=== PATIENT | female | born 1945 | race Caucasian/White ===

== ENCOUNTER 2017-10-01 23:43 | Emergency (ER) | payer MEDICARE, OTHER ==
[~2017-10-01] VITALS: Ht 152.4 cm; Wt 82.6 kg
[~2017-10-01 23:43] MED LIST: ALIGN4 MG; ALLEGRA ALLERG180 MG PO; ASPIRIN325 MG PO; ATORVASTATIN CA20 MG PO; BENICAR20 MG PO; BUPROPION HCL150 M1 PO; CALCIUM 600 +1 EAC2 PO; CALCIUM CARBONATE PO; CENTRUM SILVER1 EAC1 PO; D3 VITAMIN PO; DULCOLAX5 MG PO; Ester C PO; FISH OIL OMEGA1 EACH PO; FISH OIL PO; HYDROCODONE PO; LEVOTHYROXINE75 MCG PO; LISINOPRIL10 MG PO; METFORMIN HCL750 MG PO; OMEPRAZOLE20 M1 PO; PAROXETINE HCL20 MG PO; TOVIAZ8 MG PO; TYLENOL WITH C1 EACH PO; ULTRAM50 MG PO
[2017-10-01] MEDS ORDERED: MYRBETRIQ50 MG PO (23:55)
[2017-10-01] MEDS ORDERED: CRANBERRY CONC1 EAC1 PO (23:57)
[2017-10-01] MEDS ORDERED: FERROUS SULFAT325 MG PO (23:58)
--- NOTE | 2017-10-02 00:46 | Diagnostic Imaging Report ---
EXAMINATION: Head CT without contrast. HISTORY:Status post fall. COMPARISON:CT brain from 09/22/2015. TECHNIQUE: Multidetector axial images were obtained from the foramen magnum to the vertex without contrast. The images were reconstructed using brain and bone algorithms. Thin section brain images were reformatted into coronal and sagittal planes. Intravenous contrast: None IMAGE QUALITY: Acceptable. FINDINGS: Skull/scalp: No lytic or blastic. lesions. No surgical changes. Parenchyma: No abnormal density. No acute hemorrhage, mass or acute major vascular territorial infarct. Arteries: Atherosclerotic calcification in bilateral carotid siphon. Dural sinuses: No abnormal density suggestive of thrombosis. Ventricles: Mild compensated dilatation due to volume loss. No hydrocephalus. Extra-axial spaces: Unchanged asymmetric prominence of the extra-axial space in the left anterior lateral aspect of the premedullary cistern may represent a normal variant or secondary to underlying small arachnoid cyst. Brain volume: Mild generalized age-related cerebral volume loss. Craniocervical junction: No mass, Chiari malformation, or basilar invagination. Sella: No mass. Paranasal/mastoid sinuses: Imaged portions unremarkable. IMPRESSION: No acute intracranial abnormality. No change since CT head from 09/22/2015. Chronic findings: Mild generalized cerebral volume loss. Signed by: Dr. Debra Zimmerman M.D. on 10/02/2017 12:42 AM
--- NOTE | 2017-10-02 00:53 | Diagnostic Imaging Report ---
History: Fall. Comparison studies: None Technique: Axial images were obtained through the cervical region.. Coronal and sagittal images reconstructed from the axial data.. Intravenous contrast: None Findings: Fractures: None. Soft tissue injuries: None. Atlantoaxial articulation: Intact. Alignment: Loss of normal cervical lordosis may be positional or due to muscle spasm. No scoliosis. 2 mm grade 1 anterolisthesis at C3-C4, 2.7 mm anterolisthesis at C4-C5 and 2 mm grade 1 anterolisthesis at C7-T1. Cervicomedullary junction: No abnormalities. The foramen magnum is patent. Soft tissues: No abnormalities. Vertebrae: No fractures, infection or neoplasm. Degenerative changes: C3-C4: Mild degenerative disc disease. Moderate left foraminal stenosis due to facet and uncovertebral arthrosis. C4-C5: Moderate degenerative disc disease. Posterior disc osteophyte complex without canal stenosis. Mild left foraminal stenosis due to facet and uncovertebral arthrosis. C5-C6: Degenerative disc disease. Posterior disc osteophyte complex without canal stenosis. Mild left foraminal stenosis due to facet and uncovertebral arthrosis. C6-C7: Severe degenerative disc disease. Posterior disc osteophyte complex without canal stenosis. Mild left foraminal stenosis due to facet and uncovertebral arthrosis.. IMPRESSION: 1. No acute cervical spine fracture. Loss of normal cervical lordosis may be positional or due to muscle spasm. 2. Ligament, spinal cord and or vascular abnormalities cannot be excluded on the basis of this examination. 3. Grade 1 anterolisthesis at C3-C4, C4-C5 and C7-T1. 4. Cervical spondylosis as detailed above. Signed by: Dr. Debra Zimmerman M.D. on 10/02/2017 12:49 AM
== END 2017-10-02 02:56 | disposition home or self-care (01) ==
LOC: ER 23:43
DX: S00.81XA Abrasion of other part of head, initial encounter (principal); S50.311A Abrasion of right elbow, initial encounter; S40.811A Abrasion of right upper arm, initial encounter; W01.0XXA Fall on same level from slipping, tripping and stumbling without subsequent striking against object, initial encounter; Y92.019 Unspecified place in single-family (private) house as the place of occurrence of the external cause; I10 Essential (primary) hypertension; E78.00 Pure hypercholesterolemia, unspecified; E03.9 Hypothyroidism, unspecified; Z86.73 Personal history of transient ischemic attack (TIA), and cerebral infarction without residual deficits; Z79.82 Long term (current) use of aspirin
CPT/HCPCS: 70450; 72125; 99283

== ENCOUNTER 2017-11-30 14:46 | Observation (INO) | payer MEDICARE ==
[~2017-11-30] VITALS: Ht 154.9 cm; Wt 75.7 kg
[~2017-11-30 14:46] MED LIST changes: +CRANBERRY CONC1 EAC1 PO; +FERROUS SULFAT325 MG PO; +MYRBETRIQ50 MG PO
[2017-11-30] MEDS ORDERED: ONDANSETRON HCL INJ 2 MG/ML VIAL IV STA (14:49)
[2017-11-30] MEDS ORDERED: SODIUM CHLORIDE 0.9% 1000ML 1,000 ML IV STA (14:49)
[2017-11-30] MEDS ORDERED: MORPHINE SULFATE INJ 4 MG/ML INJ IV STA (14:49)
[2017-11-30] MEDS ORDERED: MECLIZINE HCL 12.5 MG TAB PO ONE (15:00)
[2017-11-30 15:24] LABS: BASOPHILS % 0.4 % (0.0-1.0); HEMATOCRIT 37.2 % (34.2-44.1); HEMOGLOBIN 12.8 g/dL (12.0-16.0); LYMPHOCYTES # (AUTO) 1.1 (1.0-3.2); LYMPHOCYTES % 20.7 % (18.0-39.1); MEAN CORPUSCULAR HEMOGLOBIN 33.7 pg (28-32); MEAN CORPUSCULAR HGB CONC 34.4 g/dL (31-35); MEAN CORPUSCULAR VOLUME 97.9 fL (81-99); MONOCYTES # (AUTO) 0.5 (0.2-0.8); NEUTROPHILS # (AUTO) 3.8 (2.1-6.9); NEUTROPHILS % 69.5 % (38.7-80.0); PLATELET COUNT 129 x10e3/uL (140-360)
[2017-11-30 15:41] LABS: ALANINE AMINOTRANSFERASE 17 IU/L (0-55); ALBUMIN 3.2 g/dL (3.5-5.0); ALBUMIN/GLOBULIN RATIO 1.2 (0.8-2.0); ALKALINE PHOSPHATASE 86 IU/L (40-150); ANION GAP 13.8 mmol/L (8-16); BLOOD UREA NITROGEN 22 mg/dL (7-26); BUN/CREATININE RATIO 25 (6-25); CALCIUM 9.5 mg/dL (8.4-10.2); CARBON DIOXIDE 22 mmol/L (22-29); CHLORIDE 110 mmol/L (98-107); CREATINE KINASE 159 IU/L (29-168); CREATININE, SERUM 0.89 mg/dL (0.57-1.11); EST GLOMERULAR FILTRATION RATE > 60 ML/MIN (60-); GLUCOSE 113 mg/dL (74-118); LIPASE 43 U/L (8-78); POTASSIUM 3.8 mmol/L (3.5-5.1); SODIUM 142 mmol/L (136-145)
--- NOTE | 2017-11-30 15:41 | Diagnostic Imaging Report ---
PROCEDURE: A single AP view of the chest. COMPARISON: None. INDICATIONS: NASUEA, VERTIGO FINDINGS: Lines/tubes: None. Lungs: The lungs are well inflated and clear. There is no evidence of pneumonia or pulmonary edema. Pleura: There is no pleural effusion or pneumothorax. Heart and mediastinum: The heart and the mediastinum are unremarkable. Bones: Degenerative changes of the right shoulder. IMPRESSION: 1. No acute cardiopulmonary disease. Dictated by: Yuan Ma M.D. on 11/30/2017 at 15:47 Electronically approved by: Yuan Ma M.D. on 11/30/2017 at 15:47
--- NOTE | 2017-11-30 15:58 | Diagnostic Imaging Report ---
ADDENDUM #1 Dose modulation, iterative reconstruction, and/or weight based adjustment of the mA/kV was utilized to reduce the radiation dose to as low as reasonably achievable. Please disregard the following dictation errors. Under the heading of comparison studies, the following should read: Multiple head CTs which date to 03/20/2014, most recent of 10/02/2017. In the impression the following should read: 1. No acute intracranial abnormalities. 2. No changes from the previous head CT of 10/02/2017. 3. Mild generalized volume loss. Signed by: Dr. Latrell Pedroza M.D. on 12/27/2017 4:41 PM ORIGINAL REPORT Exam: Head CT without contrast History: Dizziness Comparison studies: Multiple head CTs which date to 03/20, most recent of 10/02/2017. Technique: Axial images were obtained from the skull base to the vertex. Coronal and sagittal images reconstructed from the axial data. Intravenous contrast: None Findings: Scalp: No abnormalities. Bones: No fractures, destructive blastic or lytic lesions. Brain sulci: Mildly prominent. Ventricles: Mild compensatory dilatation.. No hydrocephalus. Extra-axial spaces: No masses, no fluid collection. Parenchyma: No abnormal densities. No masses, hemorrhage, acute or chronic vascular insults. Sellar/suprasellar region: No abnormalities. Craniocervical junction: Patent foramen magnum. No Chiari one malformation. Incidental findings: Atherosclerotic calcifications in the carotid siphons and intradural vertebral arteries. 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 Small sessile exostoses or osteoma is along the outer table of the bifrontal calvarium. IMPRESSION: 1. No acute intracranial abnormalities. 2. No changes from the previous head CT of 617 10/05/2017. 3. Mild general is volume loss. Signed by: Dr. Latrell Pedroza M.D. on 11/30/2017 3:54 PM
[2017-11-30] MEDS ORDERED: MECLIZINE HCL 12.5 MG TAB PO PRN (16:45)
[2017-11-30] MEDS ORDERED: ONDANSETRON HCL 4 MG ORAL DISINTEGRATING TAB PO PRN (16:45)
[2017-11-30 17:33] VITALS: BP 123/80
[2017-11-30 17:36] VITALS: BP 123/80
[2017-11-30 19:41] VITALS: BP 109/65
[2017-11-30 20:05] LABS: BILIRUBIN,URINE NEGATIVE (NEGATIVE); CLARITY,URINE CLEAR (CLEAR); COLOR,URINE YELLOW (YELLOW); KETONES,URINE NEGATIVE (NEGATIVE); LEUKOCYTE ESTERASE ,URINE NEGATIVE (NEGATIVE); NITRITE,URINE NEGATIVE (NEGATIVE); PROTEIN,URINE DIPSTICK NEGATIVE (NEGATIVE); URINE UROBILINOGEN 0.2 mg/dL (0.2 - 1)
[2017-11-30 20:16] LABS: EPITHELIAL CELLS,URINE FEW /LPF
[2017-11-30 21:00] VITALS: BP 109/65
[2017-12-01] VITALS (7 sets, daily range): BP systolic 97–138; BP diastolic 57–87
[2017-12-01] MEDS ORDERED: TRAMADOL HCL 50 MG TAB PO PRN (08:45)
[2017-12-01] MEDS ORDERED: PANTOPRAZOLE SOD 40 MG TABEC PO SCH (08:45)
[2017-12-01] MEDS ORDERED: LEVOTHYROXINE SODIUM 75 MCG TAB PO SCH (08:45)
[2017-12-01] MEDS ORDERED: BUPROPION HCL 150 MG TABCR PO SCH (09:00)
[2017-12-01] MEDS ORDERED: (Mirabegron (Myrbetriq) 50 MG) PO SCH (09:00)
[2017-12-01] MEDS ORDERED: BUPROPION HCL 300 MG PO SCH (09:00)
[2017-12-01] MEDS ORDERED: PAROXETINE HCL 20 MG TAB PO SCH (10:00)
[2017-12-01] MEDS ORDERED: MECLIZINE HCL12.5 MG PO (13:52)
--- NOTE | 2017-12-01 14:46 | History and Physical ---
[facility] SUMMARY DATE OF DISCHARGE: 12/01/2017 PRIMARY CARE PROVIDER: Dr. Rony Lopez. ADMITTING DIAGNOSES 1. Vertigo. 2. Rule out transient ischemic attack. 3. Hypertension. 4. Depression. DISCHARGE DIAGNOSES 1. Vertigo, resolved. 2. Rule out transient ischemic attack. 3. Hypertension. 4. Depression. BRIEF HISTORY: Ms. Haddad is a 72-year-old lady who presented with 1 day of vertigo. The patient also was being seen by psych for some early memory loss and stuttering. The vertigo was fairly severe, and there was some concern for possible TIA. The patient was admitted for observation. REVIEW OF SYSTEMS: She denies fever, chills or weight loss. She denies sinus congestion or sore throat. She denies chest pain or palpitations. She denies shortness breath, wheezing or cough. She denies abdominal pain, nausea, vomiting or melena. She denies dysuria or flank pain. She denies rash or pruritus. She denies joint pain or swelling. She denies bleeding or bruising. She had vertigo. Denied loss of consciousness or focal weakness. She has some depression, which is being treated. She denies homicidal or suicidal ideation. PAST MEDICAL HISTORY: Significant for hypertension and depression. MEDICATIONS: Her regular medications include: 1. Wellbutrin ER 300 mg daily. 2. Paxil 30 mg at bedtime. 3. Levothyroxine 75 mcg daily for hypothyroidism. 4. Myrbetriq 50 mg daily for urinary incontinence. 5. Omeprazole 40 mg daily for GERD. 6. Tramadol as needed for pain. 7. Hitchins 3. 8. Lisinopril 20 mg daily. 9. Iron sulfate 325 mg daily. 10. Aspirin 325 mg daily. 11. Dulcolax as needed. SURGICAL HISTORY: She has a distant history of hysterectomy, and she has also had a right total hip replacement. ALLERGIES: SHE HAS NO KNOWN DRUG ALLERGIES. FAMILY HISTORY: Remarkable for hypertension. SOCIAL HISTORY: The patient is . Kazakh is her primary language. She does not smoke, drink or use illegal drugs. She is generally independently functioning. PHYSICAL EXAMINATION PSYCHIATRIC: She is alert and oriented times 3 with normal mood and affect. CONSTITUTIONAL: She has a normal body habitus. She is in no acute distress. VITAL SIGNS: Blood pressure 133/71. Pulse 70 and regular. Respiratory rate 17. O2 sat 96%. Temperature 97.0. HEENT: Head is atraumatic. Her eyes are anicteric with clear conjunctivae. Ears and nares are without erythema or discharge. Oropharynx is clear. NECK: Supple with no mass or thyromegaly. LYMPHATIC SYSTEM: She has no palpable cervical, axillary or inguinal adenopathy. CARDIOVASCULAR: Her heart has a regular rate and rhythm without murmur or extra heart sounds. She has no peripheral edema. She has palpable dorsal pedal pulses. RESPIRATORY: Lungs are clear to auscultation and percussion with normal respiratory effort. GASTROINTESTINAL: Her abdomen is soft without organomegaly, masses or tenderness. She has normal bowel sounds present. CUTANEOUS: Her skin is warm and dry to touch with no rash or skin breakdown. MUSCULOSKELETAL: Her joints are in normal alignment without erythema or swelling. She has no calf tenderness. NEUROLOGIC: Exam is nonfocal with intact cranial nerves and no motor or sensory deficits. DIAGNOSTIC STUDIES: Chest x-ray shows no acute disease. CT scan of the brain shows no acute disease. Some mild generalized volume loss. Carotid Dopplers are completely clear. Her UA is clear. Her EKG is normal. Troponin is 0.002. BNP is 54.5. Her chemistry shows normal electrolytes, CO2 22, creatinine 0.89 and BUN 22 for a normal GFR. Calcium is 9.5, and glucose is 113. Transaminases, bilirubin and alk phos are all normal. CBC shows a white count of 5.4 with a normal differential. Hemoglobin 12.8, hematocrit 37.2 and platelet count 129,000. Lipase is 43. IMPRESSION AND PLAN 1. Vertigo, mostly benign, resolved with meclizine. Will discharge patient with meclizine as needed. 2. Hypertension is well controlled on her current medications. 3. Depression, stable with current medications. HOSPITAL COURSE: The patient was admitted to the floor overnight for observation. Her vertigo improved dramatically overnight with meclizine. She had a nonfocal neuro exam that was asymptomatic the following morning with normal vitals. Her workup had been completely negative, and the patient was discharged home to resume a regular cardiac diet, to resume all of her home medications, and to resume activity as tolerated. Follow up with her PCP within 2 weeks. Job#: [id number]
--- OUTSIDE RECORDS SUMMARY | 2018-01-19 02:01 | XMS REPORT ---
Author Author [facility] Address Unknown Phone Unavailable Care Team Providers Care Overhead Irrigator Name Role Phone RANULFO BOO Unavailable Unavailable SHAHIDA LAWRENCE Unavailable Unavailable Problems This patient has no known problems. Allergies, Adverse Reactions, Alerts This patient has no known allergies or adverse reactions. Medications This patient has no known medications. Results Test Description Test Time Test Comments Text Results Atomic Results Result Comments CT BRAIN WO 2017-11-30 15:51:00 [place] [address] Patient Name: ENOC BRANDON MR #: [id number] : 1945 Age/Sex: 72/F Req #: [id number] [facility] Physician: RANULFO BOO MD Ordered by: SADIA SURESH MD Report #: [id number] Location: [facility] Room/Bed: [place] [address] Procedure: [id number] CT/CT BRAIN WO Exam Date: 11/30 Exam Time: 1522 REPORT STATUS: Signed ADDENDUM #1 Dose modulation, iterative reconstruction, and/or weight based adjustment of the mA/kV was utilized to reduce the radiation dose to as low as reasonably achievable. Please disregard the following dictation errors. Under the heading of comparison studies, the following should read: Multiple head CTs which date to 03/20/2014, most recent of 10/02/2017. In the impression the following should read: 1. No acute intracranial abnormalities. 2. No changes from the previous head CT of 2017. 3. Mild generalized volume loss. Signed by: Dr. Washington Pedroza M.D. on 12/27/2017 4:41 PM ORIGINAL REPORT Exam: Head CT without contrast History: Dizziness Comparison studies: Multiple head CTs which date to 03/20, most recent of 10/02/2017. Technique: Axial images were obtained from the skull base to the vertex. Coronal and sagittal images reconstructed from the axial data. Intravenous contrast: None Findings: Scalp: No abnormalities. Bones: No fractures, destructive blastic or lytic lesions. Brain sulci: Mildly prominent. Ventricles: Mild compensatory dilatation.. No hydrocephalus. Extra-axial spaces: No masses, no fluid collection. Parenchyma: No abnormal densities. No masses, hemorrhage, acute or chronic vascular insults. Sellar/suprasellar region: No abnormalities. Craniocervical junction: Patent foramen magnum. No Chiari one malformation. Incidental findings: Atherosclerotic calcifications in the carotid siphons and intradural vertebral arteries. 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 Small sessile exostoses or osteoma is along the outer table of the bifrontal calvarium. IMPRESSION: 1. No acute intracranial abnormalities. 2. No changes from the previous head CT of 617 10/05/2017. 3. Mild general is volume loss. Signed by: Dr. Washington Pedroza M.D. on 11/30 3:54 PM Dictated By: WASHINGTON PEDROZA MD 1641 Transcribed By: CLARENCE on 11/30/17 4141 COPY TO: SADIA SURESH MD CHEST SINGLE (PORTABLE) 2017-11-30 15:47:00 [place] [address] Patient Name: ENOC BRANDON MR #: [id number] : 1945 Age/Sex: 72/ F Req #: [id number] Adm Physician: Ordered by: SADIA SURESH MD Report #: [id number] Location: ER Room/Bed: ____ Procedure: [id number] DX/CHEST SINGLE (PORTABLE) Exam Date: 11/30/17 Exam Time: 1522 REPORT STATUS: Signed PROCEDURE: A single AP view of the chest. COMPARISON: None. INDICATIONS: NASUEA, VERTIGO FINDINGS: Lines/tubes: None. Lungs: The lungs are well inflated and clear. There is no evidence of pneumonia or pulmonary edema. Pleura: There is no pleural effusion or pneumothorax. Heart and mediastinum: The heart and the mediastinum are unremarkable. Bones: Degenerative changes of the right shoulder. IMPRESSION: 1. No acute cardiopulmonary disease. Dictated by: Martha Ma M.D. on 11/30/2017 at 15:47 Electronically approved by: Martha Ma M.D. on 11/30/2017 at 15:47 Dictated By: MARTHA MA MD 1547 Transcribed By: FRED on 11/30/17 1547 COPY TO: SADIA SURESH MD CT CERVICAL SPINE 2017-10-02 00:42:00 [place] [address] Patient Name: ENOC BRANDON MR #: [id number] : 1945 Age/Sex: 72/F Req #: [id number] Adm Physician: Ordered by: SHAHIDA LAWRENCE MD Report #: [id number] Location: ER Room/Bed: ___ Procedure: [id number] CT/CT CERVICAL SPINE WO Exam Date: 10/02/17 Exam Time: 0010 REPORT STATUS: Signed History: Fall. Comparison studies: None Technique: Axial images were obtained through the cervical region.. Coronal and sagittal images reconstructed from the axial data.. Intravenous contrast: None Findings: Fractures: None. Soft tissue injuries: None. Atlantoaxial articulation: Intact. Alignment: Loss of normal cervical lordosis may be positional or due to muscle spasm. No scoliosis. 2 mm grade 1 anterolisthesis at C3-C4, 2.7 mm anterolisthesis at C4-C5 and 2 mm grade 1 anterolisthesis at C7-T1. Cervicomedullary junction: No abnormalities. The foramen magnum is patent. Soft tissues: No abnormalities. Vertebrae: No fractures, infection or neoplasm. Degenerative changes: C3-C4: Mild degenerative disc disease. Moderate left foraminal stenosis due to facet and uncovertebral arthrosis. C4-C5: Moderate degenerative disc disease. Posterior disc osteophyte complex without canal stenosis. Mild left foraminal stenosis due to facet and uncovertebral arthrosis. C5-C6: Degenerative disc disease. Posterior disc osteophyte complex without canal stenosis. Mild left foraminal stenosis due to facet and uncovertebral arthrosis. C6-C7: Severe degenerative disc disease. Posterior disc osteophyte complex without canal stenosis. Mild left foraminal stenosis due to facet and uncovertebral arthrosis.. IMPRESSION: 1. No acute cervical spine fracture. Loss of normal cervical lordosis may be positional or due to muscle spasm. 2. Ligament, spinal cord and or vascular abnormalities cannot be excluded on the basis of this examination. 3. Grade 1 anterolisthesis at C3-C4, C4-C5 and C7-T1. 4. Cervical spondylosis as detailed above. Signed by: Dr. Debra Cheema M.D. on 10/02/2017 12:49 AM Dictated By: DEBRA CHEEMA MD Transcribed By: CLARENCE on 10/02/1748 COPY TO: SHAHIDA LAWRENCE MD CT BRAIN WO 2017-10-02 00:35:00 [facility] [address] [place] [address] Patient Name: ENOC BRANDON MR #: [id number] : 1945 Age/Sex: 72/F Req #: [id number] Adm Physician: Ordered by: SHAHIDA LAWRENCE MD Report #: [id number] Location: ER Room/Bed: ___ Procedure: [id number] CT/CT BRAIN WO Exam Date: 10/02/17 Exam Time: 0010 REPORT STATUS: Signed EXAMINATION: Head CT without contrast. HISTORY:Status post fall. COMPARISON:CT brain from 09/22/2015. TECHNIQUE: Multidetector axial images were obtained from the foramen magnum to the vertex without contrast. The images were reconstructed using brain and bone algorithms. Thin section brain images were reformatted into coronal and sagittal planes. Intravenous contrast: None IMAGE QUALITY: Acceptable. FINDINGS: Skull/scalp: No lytic or blastic. lesions. No surgical changes. Parenchyma: No abnormal density. No acute hemorrhage, mass or acute major vascular territorial infarct. Arteries: Atherosclerotic calcification in bilateral carotid siphon. Dural sinuses: No abnormal density suggestive of thrombosis. Ventricles: Mild compensated dilatation due to volume loss. No hydrocephalus. Extra-axial spaces: Unchanged asymmetric prominence of the extra-axial space in the left anterior lateral aspect of the premedullary cistern may represent a normal variant or secondary to underlying small arachnoid cyst. Brain volume: Mild generalized age-related cerebral volume loss. Craniocervical junction: No mass, Chiari malformation, or basilar invagination. Sella: No mass. Paranasal/mastoid sinuses: Imaged portions unremarkable. IMPRESSION: No acute intracranial abnormality. No change since CT head from 09/22/2015. Chronic findings: Mild generalized cerebral volume loss. Signed by: Dr. Debra Cheema M.D. on 10/02/2017 12:42 AM Dictated By: DEBRA CHEEMA MD Transcribed By: CLARENCE on 10/02/1741 COPY TO: SHAHIDA LAWRENCE MD
--- OUTSIDE RECORDS SUMMARY | 2018-01-19 02:01 | XMS REPORT | Clinical Summary ---
Author Author [facility] Address Unknown Phone Unavailable Care Team Providers Care Web Content Editor Name Role Phone Dariusz Chatterjee MD PCP Allergies No Known Allergies Current Medications Prescription Sig. Disp. Refills Start End Date Status Date levothyroxine (SYNTHROID, Take 75 mcg by mouth Active LEVOXYL) 75 mcg tablet every morning. lisinopril Take 20 mg by mouth Active (PRINIVIL,ZESTRIL) 20 mg daily. tablet omeprazole (PriLOSEC) 20 Take 20 mg by mouth Active MG capsule daily. traMADol-acetaminophen Take 1 tablet by mouth Active (ULTRACET) 37.5-325 mg every 6 (six) hours as per tablet needed for moderate pain. traMADol (ULTRAM) 50 mg Take 1 tablet (50 mg 60 tablet 0 09/10/19 Active tablet total) by mouth every 4 18 19 (four) hours as needed for moderate pain. Hospital, Clinic, or Ordered Dose Route Frequency Start End Date Status Other Facility Date Administered Medication hylan g-f 20 48 mg IAtc once 01/27/20 01/27/20 Ended (SYNVISC-ONE) injection 17 17 48 mgIndications: Osteoarthritis of left knee, unspecified osteoarthritis type lidocaine (XYLOCAINE) 10 30 mg inj once 01/27/20 01/27/20 Ended mg/mL (1 %) injection 30 17 17 mgIndications: Osteoarthritis of left knee, unspecified osteoarthritis type bupivacaine (MARCAINE) 3 mL inj once 01/27/20 01/27/20 Ended 0.5 % (5 mg/mL) injection 17 17 3 mLIndications: Osteoarthritis of left knee, unspecified osteoarthritis type Active Problems Problem Noted Date Primary osteoarthritis of left knee 08/17/2017 Encounters Date Type Specialty Care Team Description 09/09/2017 Office Visit Orthopedic Surgery Buck Brand Primary osteoarthritis of MD Donn left knee (Primary Dx) 09/09/2017 Ancillary Orthopedic Surgery Buck Brand Primary osteoarthritis of Orders MD Donn left knee 09/09/2017 Ancillary Orthopedic Surgery Grover Calero MD Orders 08/17/2017 Office Visit Sports Grover Mercedes MD Primary osteoarthritis of left knee (Primary Dx) 08/15/2017 Orders Only Orthopedic Surgery Jing Chapa, MA 08/09/2017 Telephone Orthopedic Surgery Jing Chapa, BRAD 08/02/2017 Telephone Orthopedic Surgery Jing Chapa, BRAD 08/02/2017 Telephone Orthopedic Surgery Jing Chapa, MA 01/31/2017 Telephone Orthopedic Surgery Buck Brand MD 01/26/2017 Office Visit Orthopedic Buck Caruso Left knee pain, MD Donn unspecified chronicity (Primary Dx); Osteoarthritis of left knee, unspecified osteoarthritis type 01/19/2017 Telephone Orthopedic Surgery Buck Brand MD 01/18/2017 Telephone Orthopedic Surgery Joslyn Patel MA 01/14/2017 Telephone Orthopedic Surgery Buck Brand MD 01/05/2017 Telephone Orthopedic Surgery Jing Chapa MA 12/17/2016 Telephone Orthopedic Surgery Buck Brand MD 12/03/2016 Telephone Orthopedic Surgery Buck Brand MD after 11/29/2016 Social History Tobacco Use Types Packs/Day Years Used Date Never Smoker Alcohol Use Drinks/Week oz/Week Comments No Sex Assigned at Date Recorded Not on file Last Filed Vital Signs Vital Sign Reading Time Taken Blood Pressure 108/65 01/26/2017 3:07 PM CDT Pulse 84 01/26/2017 3:07 PM CDT Temperature - - Respiratory Rate - - Oxygen Saturation - - Inhaled Oxygen - - Concentration Weight 76.2 kg (168 lb) 01/26/2017 3:07 PM CDT Height 152.4 cm (5') 01/26/2017 3:07 PM CDT Body Mass Index 32.81 01/26/2017 3:07 PM CDT Plan of Treatment Date Type Specialty Care Team Description 02/22/2018 Office Visit Grover Chery MD [address] [facility] [address] [place] [address] Health Maintenance Due Date Last Done Comments BREAST CANCER SCREENING 09/22/1993 COLON CANCER SCREENING 09/22/1993 SHINGRIX VACCINE (#1) 09/22/1993 ZOSTER VACCINE 2003 PNEUMOCOCCAL 09/22/2008 POLYSACCHARIDE VACCINE AGE 65 AND OVER PNEUMOCOCCAL-13 09/22/2008 INFLUENZA VACCINE 11/16/2017 Procedures Procedure Name Priority Date/Time Associated Diagnosis Comments XR KNEE 3 VW LEFT Routine 09/09/2017 Primary osteoarthritis of Results for this 2:02 PM CDT left knee procedure are in the results section. [place] ARTHROCENTESIS Routine 08/17/2017 Primary osteoarthritis of Results for this ASPIR&/INJ MAJOR JT/BURSA 1:45 PM CDT left knee procedure are in the W/O US results section. [place] ARTHROCENTESIS Routine 01/28/2017 Osteoarthritis of left Results for this ASPIR&/INJ MAJOR JT/BURSA 12:34 AM CDT knee, unspecified procedure are in the W/O US osteoarthritis type results section. after 11/29/2016 Results * XR Knee 3 Vw Left (09/09/2017 2:02 PM) Narrative Performed At [facility] X-rays left knee 3 views standing AP lateral sunrise view 09/09/2017: X-ray shows moderate advanced osteoarthritis mostly lateral compartment patellofemoral compartment with flattening of the lateral femoral condyle and spur formation is also spur formation superior and inferior poles of the patella. Performing Organization Address City/State/Zipcode Phone Number [facility] [address] [place] [address] * Large Joint Arthrocentesis (08/17/2017 1:45 PM) Narrative Performed At Grover Calero MD 08/17/2017 2:11 PM Large Joint Arthrocentesis Consent given by: patient Site marked: site marked Timeout: Immediately prior to procedure a time out was called to verify the correct patient, procedure, equipment, field technical support consultant and site/side marked as required Supporting Documentation Indications: pain Procedure Details Preparation: Patient was prepped and draped in the usual sterile fashion Location: knee - L knee Left side: Needle size: 20 G Approach: lateral Left knee medications administered: 48 mg hylan g-f 20 48 mg/6 mL Patient tolerance: patient tolerated the procedure well with no immediate complications * Large Joint Arthrocentesis (01/28/2017 12:34 AM) Narrative Performed At Buck Brand MD 01/28/2017 12:34 AM Large Joint Arthrocentesis Consent given by: patient Supporting Documentation Indications: pain and joint swelling Procedure Details Preparation: Patient was prepped and draped in the usual sterile fashion Ultrasound guided: no Platelet Rich Plasma Used: no PRP UsedLocation: knee - L knee Left side: Needle size: 20 G Approach: lateral Left knee medications administered: 5 mL lidocaine 10 mg/mL (1 %); 48 mg hylan g-f 20 48 mg/6 mL Aspirate amount: 10 mL Aspirate: blood-tinged Patient tolerance: patient tolerated the procedure well with no immediate complications after 11/29/2016 Insurance Payer Benefit Subscriber ID Type Phone Address Plan / Group UHC MEDICARE AARP xxxxxxxxx HMO MEDICARE COMPLETE [facility] [place] [address]
--- OUTSIDE RECORDS SUMMARY | 2018-01-19 02:01 | XMS REPORT | Clinical Summary ---
Author Author [facility] Address Unknown Phone Unavailable Care Team Providers Care Fagoter Name Role Phone Dariusz Chatterjee MD PCP [...] 02/22/2018 Office Visit Grover Chery MD [address] [facility] [address] [place] [address] Health Maintenance Due Date Last [...] knee procedure are in the results section. [place] ARTHROCENTESIS Routine 08/17/2017 Primary osteoarthritis of Results for this ASPIR&/INJ MAJOR JT/BURSA 1:45 PM CDT left knee procedure are in the W/O US results section. AL ARTHROCENTESIS Routine 01/28/2017 Osteoarthritis of left Results for this ASPIR&/INJ MAJOR JT/BURSA 12:34 AM CDT knee, unspecified procedure are in the W/O US osteoarthritis type results section. after 11/29/2016 Results * XR Knee 3 Vw Left (09/09/2017 2:02 PM) Narrative Performed At [facility] X-rays left knee 3 views standing AP lateral sunrise view 09/09/2017: X-ray shows moderate advanced osteoarthritis mostly lateral compartment patellofemoral compartment with flattening of the lateral femoral condyle and spur formation is also spur formation superior and inferior poles of the patella. Performing Organization Address City/State/Zipcode Phone Number [facility] [address] [place] [address] * Large Joint Arthrocentesis (08/17/2017 1:45 PM) Narrative Performed At Grover Calero MD 08/17/2017 2:11 PM Large Joint Arthrocentesis Consent given by: patient Site marked: site marked Timeout: Immediately prior to procedure a time out was called to verify the correct patient, procedure, equipment, data support analyst and site/side marked as required Supporting Documentation [...] UHC MEDICARE AARP xxxxxxxxx HMO MEDICARE COMPLETE [facility] [place] [address]
--- OUTSIDE RECORDS SUMMARY | 2018-01-19 02:01 | XMS REPORT | Continuity of Care Document ---
Author Author [facility] Organization [facility] Address [address] [place] [address] Phone Unavailable Care Team Providers Care Panama Hat Blocker Name Role Phone JOHANNY BOWERS III, M.D. PCP Insurance Providers Guarantor GopalKatrina allen Jose Address [address] [place] [address] Email PTDECLINED Payer Aarp Medicare Complete Policy Number [id number] Subscriber's Name Katrina Haddad Relationship 18 Self / Same As Patient Group Number [id number] Advance Directives Directive Response Recorded Date/Time Does the patient have an advance directive? Yes 02/17/16 3:37pm If yes, is advance directive on file with [facility]? No 09/22/15 11:06am If not on file with [facility] will patient provide a copy? Yes 09/22/15 11:06am Do you have a Directive to Physician? No 10/01/17 11:43pm Do you have a Medical Power of Personal Development Mentor? No 10/01/17 11:43pm Do you have an out of hospital Do Not Resuscitate Order? No 10/01/17 11:43pm Do you have any special needs we should be aware of? No 10/01/17 11:43pm Do you have a support person here with you today? No 10/01/17 11:43pm Did patient receive Notice of Privacy Practices? Yes 10/01/17 11:43pm Did patient receive patient rights and responsibilities? Yes 10/01/17 11:43pm Problems Medical Problem Onset Date Status Colitis 09/22/2015 Acute Medications Current Home Medications Medication Dose Units Route Directions Days Qty Instructions Start Date Aspirin 325 Mg Tablet 325 Mg Oral Daily Bisacodyl (Dulcolax) 5 Mg Tablet.dr 5 Mg Oral As Needed as needed for Constipation Bupropion Hcl (Bupropion Hcl Er) 150 Mg Tablet.er 300 Mg Oral Daily 2 UNKNOWN TIME TAKEN ON 05/28/12 Cranberry Conc/Ascorbic Acid (Cranberry Concentrate Softgel) 1 Each Capsule 4, 200 Mg Oral Daily D3 Vitamin 5,000 Oral Twice A Day 1 UNKNOWN TIME WHEN LAST TAKEN ON 05/28/12. Ferrous Sulfate 325 Mg Tablet 325 Mg Oral Daily Levothyroxine Sodium 75 Mcg Tablet 75 Mcg Oral Daily Lisinopril 10 Mg Tablet 20 Mg Oral Daily 30 Tab Mirabegron (Myrbetriq) 50 Mg Tab.er.24h 50 Mg Oral Daily Multivitamin W-Minerals/Lutein (Centrum Silver Tablet) 1 Each Tablet Oral Daily 1 UNKNOWN DOSAGE/UNKNOWN TIME WHEN LAST TAKEN ON 05/28/12. [place]-3/Dha/Epa/Fish Oil (Fish Oil [place]-3 Softgel) 1 Each Capsule.dr 900 Mg Oral Twice A Day UNKNOWN TIME ON 05/28/12 Omeprazole 20 Mg Tablet.dr 40 Mg Oral Daily 1 Paroxetine Hcl 20 Mg Tablet 30 Mg Oral Bedtime UNKNOWN TIME WHEN TAKEN ON 05/27/12 Tramadol Hcl (Ultram) 50 Mg Tablet 50 Mg Oral Every 6 Hours as needed for Pain Past Home Medications Medication Directions Ordered Status Acetaminophen With Codeine (Tylenol With Codeine #3 Tablet) 1 Each Tablet, Mg Oral As Needed Discontinued Atorvastatin Calcium 20 Mg Tablet, 20 Mg Oral Daily Discontinued Bifidobacterium Infantis (Align) Unknown Strength Capsule, Unknown Dose Discontinued Calcium Carbonate , 600 Mg Oral Daily Discontinued Calcium Carbonate/Vitamin D3 (Calcium 600 + D3 Softgel) 1 Each Capsule, 1 Each Oral Three Times A Day Discontinued Earline C Unknown Strength , 1 Tab Oral Daily Discontinued Fesoterodine Fumarate (Toviaz) 8 Mg Tab.er.24h, 8 Mg Oral Daily Discontinued Fexofenadine Hcl (Janice Allergy) 180 Mg Tablet, 180 Mg Oral Daily as needed for Allergy Discontinued Hydrocodone , Mg Oral As Needed Discontinued Metformin Hcl (Metformin Hcl Er) 750 Mg Tab.er.24h, 750 Mg Oral Discontinued Mini Fish Oil , 1290 Mg Oral Daily Discontinued Olmesartan Medoxomil (Benicar) 20 Mg Tablet, 20 Mg Oral Daily Discontinued Social History Social History Problem Response Recorded Date/Time Onset Date Status Hx Psychiatric Problems No 09/22/2015 11:06am Not Applicable Not Applicable Hx Eating Disorder No 09/22/2015 11:06am Not Applicable Not Applicable Hx Substance Use Disorder No 09/22/2015 11:06am Not Applicable Not Applicable Hx Depression Yes 09/22/2015 11:06am Not Applicable Not Applicable Hx Alcohol Use No 09/22/2015 11:06am Not Applicable Not Applicable Hx Substance Use Treatment No 09/22/2015 11:06am Not Applicable Not Applicable Hx Physical Abuse No 09/22/2015 11:06am Not Applicable Not Applicable Hospital Discharge Instructions No hospital discharge instruction information available. Plan of Care Discharge Date 10/02/17 2:56am Disposition HOME, SELF-CARE Condition at Discharge Stable Instructions/Education Provided Laceration Fall Prevention Forms Provided Work/School Excuse Prescriptions See Medication Section Referrals JOHANNY BOWERS III, M.D. Order Date: [facility] Address: [address] [place], [place] [id number] Additional Instructions/Education keep wound clean and dry follow-up with your primary care provider, call for appointment Functional Status No functional status information available. Allergies, Adverse Reactions, Alerts No known allergies. Immunizations No immunization information available. Vital Signs Acute Vital Signs Vital Response Date/Time Height 5 ft 0 in 10/01/2017 11:49pm Weight 182 lb 10/01/2017 11:49pm Body Mass Index 35.5 kg/m^2 10/01/2017 11:49pm Results No relevant diagnostic test, laboratory data and/or discharge summary information available. Procedures Procedure Status Date Provider(s) Computed tomography of brain without radiopaque contrast Active 10/02/17 SHAHIDA LAWRENCE MD Computed tomography of cervical spine without contrast Active 10/02/17 SHAHIDA LAWRENCE MD Encounters Encounter Location Arrival/Admit Date Discharge/Depart Date Attending Provider Departed Emergency Room [facility] 10/01/17 11:43pm 10/02 2:56am SHAHIDA LAWRENCE MD
== END 2017-12-01 16:27 | disposition home or self-care (01) ==
LOC: ER 14:46 → ERHOLD 16:08 → IMCU 16:55
PROVIDERS: ADMIT Internal Medicine; ATTEND Internal Medicine
DX: H81.10 Benign paroxysmal vertigo, unspecified ear (principal); R53.1 Weakness; I10 Essential (primary) hypertension; F32.9 Major depressive disorder, single episode, unspecified; Z96.641 Presence of right artificial hip joint
CPT/HCPCS: 36415; 70450; 71045; 80053; 81001; 82550; 82553; 83690; 83880; 84484; 85025; 93005; 93880; 99285; G0378 ×2; J2405; J7030; S0164